=== PATIENT | female | born 1980 | race Caucasian/White ===

== ENCOUNTER 2019-05-11 07:18 | Emergency (ER) | payer BC ==
[2019-05-11] MEDS ORDERED: Sodium Chloride 0.9% 1000 ML 1,000 ML IV SCH (07:45)
[2019-05-11] MEDS ORDERED: Sodium Chloride 0.9% 1000 ML 1,000 ML ONE ×2 (07:51→09:10)
[2019-05-11] MEDS ORDERED: Zofran 4 MG/2 ML VIAL ONE (07:57)
[2019-05-11] MEDS ORDERED: SUBLIMAZE 100 MCG/2 ML ONE ×3 (07:57→11:49)
[2019-05-11 07:59] LABS: BASOPHIL % 0.2 % (0.0-0.4); Basophil (Absolute #) 0.02 (0-0.4); Eosinophil % 2.9 % (0.00-5.0); Eosinophil (Absolute #) 0.29 (0-0.5); Granulocytes % 73.1 % (36.0-66.0); Hematocrit 35.4 % (35-47); Lymphocyte (Absolute #) 1.76 (1.0-4.6); Lymphocytes % 17.9 % (24.0-44.0); Mean Cell Volume 87.8 fl (78-100); Mean Corpuscular Hgb Concent. 33.9 g/dl (32-36); Mean Platelet Volume 10.2 fl (6-9.5); Monocyte (Absolute #) 0.58 (0.0-1.3); Monocytes % 5.9 % (0.0-12.0); Platelet Count 278 K/mm3 (150-450); Red Blood Count 4.03 M/mm3 (4.1-5.4); Red Cell Distribution Width 14.4 % (11.5-14.0); White Blood Count 9.9 K/mm3 (4.0-10.5)
[2019-05-11] MEDS ORDERED: Zofran 4 MG/2 ML VIAL IV ONE (07:59)
[2019-05-11] MEDS ORDERED: SUBLIMAZE 100 MCG/2 ML IV ONE ×3 (08:00→11:48)
[2019-05-11 08:03] LABS: Mean Corpuscular Hemoglobin 29.7 pg (26-32)
--- NOTE | 2019-05-11 08:09 | ERPHSYRPT ---
- History of Present Illness Time Seen by Provider: 05/11/19 07:40 Source: patient Patient Subjective Stated Complaint: pt co cramping at 0330 this morning took tylenol, then about 0630 or 0700 started bleeding and passing clots, 4 para 3, she is 15 weeks Triage Nursing Assessment: pt alert, resp easy, skin w/d/p, moves all ext well, no edema, has abd pain, pt is passing clots, Physician History: PATIENT IS A -4, PARA-3, 15 WEEKS GESTATION COMPLAINS OF ACUTE ONSET OF PELVIC CRAMPING AT 3AM ONSET OF INCREASING PAIN ASSOCIATED WITH PASSAGE OF VAGINAL BLEEDING WITH CLOTS. HAS LIGHTHEADEDNESS UPON STANDING. PREVIOUS OB ULTRASOUND ON 04/05/2019 CONSISTENT WITH A SINGLE INTRAUTRINE GESTATIONAL SAC WITH PRESENCE OF A SINGLE POLE MEASURING 10 WEEKS 4 DAYS. Timing/Duration: today Activites at Onset: none Quality: cramping, sharpness Onset Location: pelvic pain Severity of Pain-Max: severe Severity of Pain-Current: severe Prior abdominal problems: none Sexual intercourse history: non-contributory Modifying Factors: Improves With: nothing Associated Symptoms: other (LIGHTHEADEDNESS) Allergies/Adverse Reactions: No Known Drug Allergies Allergy (Verified 05/11/19 07:34) Home Medications: Pnv No.95/Ferrous Fum/Folic AC [ Vitamin Tablet] 1 each PO DAILY [History] Hx Tetanus, Diphtheria Vaccination/Date Given: No Hx Influenza Vaccination/Date Given: Yes Hx Pneumococcal Vaccination/Date Given: No - Review of Systems Constitutional: No Fever, No Chills Eyes: No Symptoms Ears, Nose, & Throat: No Symptoms Respiratory: No Symptoms, No Cough, No Dyspnea Cardiac: No Symptoms, No Chest Pain, No Edema, No Syncope Abdominal/Gastrointestinal: No Symptoms, No Abdominal Pain, No Nausea, No Vomiting, No Diarrhea Genitourinary Symptoms: , Vaginal Bleeding, Other (PELVIC PAIN), No Dysuria Musculoskeletal: No Symptoms, No Back Pain, No Neck Pain Skin: No Symptoms, No Rash Neurological: Other (LIGHTHEADEDNESS), No Dizziness, No Focal Weakness, No Sensory Changes Psychological: No Symptoms Endocrine: No Symptoms All Other Systems: Reviewed and Negative - Past Medical History Pertinent Past Medical History: No Neurological History: No Pertinent History ENT History: No Pertinent History Cardiac History: No Pertinent History Respiratory History: No Pertinent History Endocrine Medical History: No Pertinent History Musculoskeletal History: Fractures GI Medical History: No Pertinent History History: No Pertinent History Psycho-Social History: No Pertinent History Female Reproductive Disorders: No Pertinent History Other Medical History: hx broken pelvis-2007. anemia, INDUCED - Past Surgical History Past Surgical History: Yes Neuro Surgical History: No Pertinent History Cardiac: No Pertinent History Respiratory: No Pertinent History Gastrointestinal: No Pertinent History Genitourinary: No Pertinent History Musculoskeletal: No Pertinent History Female Surgical History: Section Other Surgical History: sinus surgery - Social History Smoking Status: Never smoker Exposure to second hand smoke: No Drug Use: none Patient Lives Alone: No - Female History Hx Last Menstrual Period: dec Hx Now: Yes Expected Date of Delivery: 10/28/19 - Nursing Vital Signs Nursing Vital Signs: Initial Vital Signs O2 Sat by Pulse Oximetry 100 05/11/19 08:07 Pain Scale Pain Intensity 4 - Physical Exam General Appearance: mild distress, alert Eye Exam: PERRL/EOMI, eyes nml inspection Ears, Nose, Throat Exam: normal ENT inspection, TMs normal, pharynx normal, moist mucous membranes Neck Exam: normal inspection, non-tender, supple, full range of motion Respiratory Exam: normal breath sounds, lungs clear, No respiratory distress Cardiovascular Exam: regular rate/rhythm, normal heart sounds, normal peripheral pulses Gastrointestinal/Abdomen Exam: soft, normal bowel sounds, tenderness ( SUPRAPUBIC TENDERNESS), No mass Pelvic Exam: normal external exam, vaginal bleeding, uterine tenderness, other ( EXTERNAL CERVICAL OS DILATED 1CM) Back Exam: normal inspection, normal range of motion, No CVA tenderness, No vertebral tenderness Extremity Exam: normal inspection, normal range of motion, pelvis stable Neurologic Exam: alert, oriented x 3, cooperative, shooter's helper II-XII nml as tested, normal mood/affect, sensation nml, No motor deficits Skin Exam: normal color, warm, dry Lymphatic Exam: No adenopathy SpO2 Interpretation: normal SpO2: 99 - Radiology Ultrasound Exam OB Ultrasound: discussed w/radiologist (THE UTERUS CONTAINS NO PRODUCTS OF CONCEPTION, RESIDUAL FLUID REMAINS) Ordered Tests: Active Orders 24 hr Category Date Time Status Oxygen-ED Only Nasal Cannula 2 lpm Care 05/11/19 08:01 Active Pulse Oximetry (ED) STAT Care 05/11/19 08:01 Active OB >14 WKS 1st GESTATION [US] Stat Exams 07/06/19 07:42 Taken CBC W DIFF Stat Lab 05/11/19 07:35 Completed CBC W DIFF Stat Lab 05/11/19 14:00 Completed HCG QUALITATIVE,SERUM Stat Lab 05/11/19 07:35 Completed HCG, Quantitative (Inhouse) Stat Lab 05/11/19 07:35 Completed PROTIME WITH INR Stat Lab 05/11/19 07:35 Completed UA W/RFX UR CULTURE Stat Lab 05/11/19 15:45 Completed Medication Summary Generic Name Dose Route Start Last Admin Trade Name Freq PRN Reason Stop Dose Admin Sodium Chloride 1,000 mls @ 200 mls/hr 05/11/19 07:45 05/11/19 13:39 Sodium Chloride 0.9% 1000 Ml IV 06/10/19 07:44 Infused .Q5H NEL Infusion Discontinued Medications Generic Name Dose Route Start Last Admin Trade Name Freq PRN Reason Stop Dose Admin Fentanyl Citrate Confirm 05/11/19 07:57 Sublimaze 100 Mcg/2 Ml Administered 05/11/19 07:58 Dose 100 mcg .ROUTE .STK-MED ONE Fentanyl Citrate 100 mcg 05/11/19 08:00 05/11/19 08:07 Sublimaze 100 Mcg/2 Ml IV 05/11/19 08:01 100 mcg STAT ONE Administration Fentanyl Citrate 50 mcg 05/11/19 10:02 05/11/19 10:17 Sublimaze 100 Mcg/2 Ml IV 05/11/19 10:03 50 mcg STAT ONE Administration Fentanyl Citrate Confirm 05/11/19 10:12 Sublimaze 100 Mcg/2 Ml Administered 05/11/19 10:13 Dose 100 mcg .ROUTE .STK-MED ONE Fentanyl Citrate 50 mcg 05/11/19 11:48 05/11/19 11:49 Sublimaze 100 Mcg/2 Ml IV 05/11/19 11:49 50 mcg STAT ONE Administration Fentanyl Citrate Confirm 05/11/19 11:49 Sublimaze 100 Mcg/2 Ml Administered 05/11/19 11:50 Dose 100 mcg .ROUTE .STK-MED ONE Hydromorphone HCl 1 mg 05/11/19 12:59 05/11/19 13:10 Dilaudid 2 Mg Injection IV 05/11/19 13:00 1 mg STAT ONE Administration Hydromorphone HCl Confirm 05/11/19 13:09 Hydromorphone 1 Mg/Ml Ampule Administered 05/11/19 13:10 Dose 1 mg .ROUTE .STK-MED ONE Ceftriaxone Sodium/Dextrose 1 g in 50 mls @ 100 mls/hr 05/11/19 09:32 13:46 Rocephin 1 Gm-D5w 50 Ml Bag IV 05/11/19 10:01 Infused STAT ONE Infusion Ceftriaxone Sodium/Dextrose Confirm 05/11/19 12:31 Rocephin 1 Gm-D5w 50 Ml Bag Administered 05/11/19 12:32 Dose 1 g in 50 mls @ ud IV .STK-MED ONE Sodium Chloride 100 mls @ 100 mls/hr 05/11/19 12:43 05/11/19 13:42 Sodium Chloride 0.9% 100 Ml Ivpb IV 05/11/19 13:42 Infused .Q1H ONE Infusion Ondansetron HCl 4 mg 05/11/19 07:59 05/11/19 08:07 Zofran 4 Mg/2 Ml Vial IV 05/11/19 08:00 4 mg STAT ONE Administration Ondansetron HCl Confirm 05/11/19 07:57 Zofran 4 Mg/2 Ml Vial Administered 05/11/19 07:58 Dose 4 mg .ROUTE .STK-MED ONE Oxytocin 20 u 05/11/19 09:33 05/11/19 09:47 Pitocin 10 Units/Ml IV 05/11/19 09:34 20 u STAT STA Administration Lab/Rad Data: Laboratory Result Diagrams 05/11/19 14:00 Laboratory Results 05/11/19 05/11/19 05/11/19 Range/Units 15:45 14:00 07:35 WBC 12.4 H (4.0-10.5) K/mm3 RBC 3.31 L (4.1-5.4) M/mm3 Hgb 10.0 L (12.0-16.0) gm/dl Hct 29.6 L (35-47) % MCV 89.4 (78-100) fl MCH 30.2 (26-32) pg MCHC 33.8 (32-36) g/dl RDW 14.2 H (11.5-14.0) % Plt Count 226 (150-450) K/mm3 MPV 10.0 H (6-9.5) fl Gran % 84.6 H (36.0-66.0) % Eos # (Auto) 0.08 (0-0.5) Absolute Lymphs (auto) 1.24 (1.0-4.6) Absolute Monos (auto) 0.58 (0.0-1.3) Lymphocytes % 10.0 L (24.0-44.0) % Monocytes % 4.7 (0.0-12.0) % Eosinophils % 0.6 (0.00-5.0) % Basophils % 0.1 (0.0-0.4) % Absolute Granulocytes 10.53 H (1.4-6.9) Basophils # 0.01 (0-0.4) PT (9.95-12.35) SECONDS INR (0.8-3.0) Beta HCG, Quant 1925.5 mIU/ml Serum , Qual (Negative) Urine Color RED (YELLOW) Urine Appearance TURBID (CLEAR) Urine pH 8.0 (5-6) Ur Specific [place] 1.009 (1.005-1.025) Urine Protein 100 (Negative) Urine Ketones TRACE (NEGATIVE) Urine Blood MODERATE (0-5) James/ul Urine Nitrite NEGATIVE (NEGATIVE) Urine Bilirubin NEGATIVE (NEGATIVE) Urine Urobilinogen NEGATIVE (0-1) mg/dL Ur Leukocyte Esterase TRACE (NEGATIVE) Urine WBC (Auto) 0-2 (0-5) /HPF Urine RBC (Auto) >101 (0-2) /HPF U Epithel Cells (Auto) FEW (FEW) /HPF Urine Bacteria (Auto) NONE (NEGATIVE) /HPF Unidentified Crystals >100 (NEGATIVE) /HPF Urine Culture Reflexed NO (NO) Urine Glucose NEGATIVE (NEGATIVE) mg/dL ABO Group Rh Factor Antibody Screen (NEGATIVE) 05/11/19 05/11/19 05/11/19 Range/Units 07:35 07:35 07:35 WBC (4.0-10.5) K/mm3 RBC (4.1-5.4) M/mm3 Hgb (12.0-16.0) gm/dl Hct (35-47) % MCV (78-100) fl MCH (26-32) pg MCHC (32-36) g/dl RDW (11.5-14.0) % Plt Count (150-450) K/mm3 MPV (6-9.5) fl Gran % (36.0-66.0) % Eos # (Auto) (0-0.5) Absolute Lymphs (auto) (1.0-4.6) Absolute Monos (auto) (0.0-1.3) Lymphocytes % (24.0-44.0) % Monocytes % (0.0-12.0) % Eosinophils % (0.00-5.0) % Basophils % (0.0-0.4) % Absolute Granulocytes (1.4-6.9) Basophils # (0-0.4) PT 11.4 (9.95-12.35) SECONDS INR 1.01 (0.8-3.0) Beta HCG, Quant mIU/ml Serum , Qual POSITIVE (Negative) Urine Color (YELLOW) Urine Appearance (CLEAR) Urine pH (5-6) Ur Specific [place] (1.005-1.025) Urine Protein (Negative) Urine Ketones (NEGATIVE) Urine Blood (0-5) James/ul Urine Nitrite (NEGATIVE) Urine Bilirubin (NEGATIVE) Urine Urobilinogen (0-1) mg/dL Ur Leukocyte Esterase (NEGATIVE) Urine WBC (Auto) (0-5) /HPF Urine RBC (Auto) (0-2) /HPF U Epithel Cells (Auto) (FEW) /HPF Urine Bacteria (Auto) (NEGATIVE) /HPF Unidentified Crystals (NEGATIVE) /HPF Urine Culture Reflexed (NO) Urine Glucose (NEGATIVE) mg/dL ABO Group A Rh Factor POSITIVE Antibody Screen NEGATIVE (NEGATIVE) 05/11/19 Range/Units 07:35 WBC 9.9 (4.0-10.5) K/mm3 RBC 4.03 L (4.1-5.4) M/mm3 Hgb 12.0 (12.0-16.0) gm/dl Hct 35.4 (35-47) % MCV 87.8 (78-100) fl MCH 29.7 (26-32) pg MCHC 33.9 (32-36) g/dl RDW 14.4 H (11.5-14.0) % Plt Count 278 (150-450) K/mm3 MPV 10.2 H (6-9.5) fl Gran % 73.1 H (36.0-66.0) % Eos # (Auto) 0.29 (0-0.5) Absolute Lymphs (auto) 1.76 (1.0-4.6) Absolute Monos (auto) 0.58 (0.0-1.3) Lymphocytes % 17.9 L (24.0-44.0) % Monocytes % 5.9 (0.0-12.0) % Eosinophils % 2.9 (0.00-5.0) % Basophils % 0.2 (0.0-0.4) % Absolute Granulocytes 7.20 H (1.4-6.9) Basophils # 0.02 (0-0.4) PT (9.95-12.35) SECONDS INR (0.8-3.0) Beta HCG, Quant mIU/ml Serum , Qual (Negative) Urine Color (YELLOW) Urine Appearance (CLEAR) Urine pH (5-6) Ur Specific [place] (1.005-1.025) Urine Protein (Negative) Urine Ketones (NEGATIVE) Urine Blood (0-5) James/ul Urine Nitrite (NEGATIVE) Urine Bilirubin (NEGATIVE) Urine Urobilinogen (0-1) mg/dL Ur Leukocyte Esterase (NEGATIVE) Urine WBC (Auto) (0-5) /HPF Urine RBC (Auto) (0-2) /HPF U Epithel Cells (Auto) (FEW) /HPF Urine Bacteria (Auto) (NEGATIVE) /HPF Unidentified Crystals (NEGATIVE) /HPF Urine Culture Reflexed (NO) Urine Glucose (NEGATIVE) mg/dL ABO Group Rh Factor Antibody Screen (NEGATIVE) - Progress Progress Note: 05/11/19 08:13 IV NORMAL SALINE 500ML/HR, ZOFRAN 4MG, FENTANYL 100MCG IV 05/11/19 09:52, LABS REVIEWED RH-POSITIVE,HGB--12, HCT-35, PITOCIN 20UNITS ADDED TO 1 LITER NS INFUSE 500ML OVER 30 MINUTES FOLLOWED BY 250ML/HR Discussed with : Other (DISCUSSED WITH DR MARTIN AT 0930 [employer]ERCIAL [employer]INTER MANAGED CARE COORDINATOR [facility] RECOMMENDS PITOCIN 20UNITS IN LITER NS OVER 90 MINUTES AND METHERGINE 0.2MG IM IF NEEDED.) Counseled pt/family regarding: lab results, diagnosis, need for follow-up - Departure Departure Disposition: Home Clinical Impression: COMPLETE Condition: Stable Critical Care Time: No Referrals: ELDON HUSAIN [Primary Care Provider] - Additional Instructions: FOLLOW UP YOUR PRIMARY CARE PROVIDER IN 2 DAYS. REDUCE YOUR ACTIVITY LEVEL. DRINK PLENTY OF FLUIDS. NORCO 5/325 EVERY 6 HOURS FOR PAIN. RETURN TO EMERGENCY ROOM FOR WEAKNESS, DIZZINESS AND INCREASING PAIN DISCOMFORT.
[2019-05-11 08:13] LABS: INR 1.01 (0.8-3.0); PROTIME 11.4 SECONDS (9.95-12.35)
[2019-05-11 08:40] LABS: ABO TYPING A; Antibody Screen NEGATIVE (NEGATIVE); RH TYPING POSITIVE
[2019-05-11] MEDS ORDERED: ROCEPHIN 1 Gm-D5w 50 ml Bag** 1 G/50 ML IVPB IV ONE ×2 (09:32→12:31)
[2019-05-11] MEDS ORDERED: Pitocin 10 UNITS/ML IV STA (09:33)
[2019-05-11] MEDS ORDERED: Sodium Chloride 0.9% 100 ML IVPB 100 ML IV ONE (12:43)
[2019-05-11] MEDS ORDERED: DILAUDID 2 MG INJECTION IV ONE (12:59)
[2019-05-11] MEDS ORDERED: Hydromorphone 1 mg/ml Ampule ONE (13:09)
[2019-05-11 14:22] LABS: BASOPHIL % 0.1 % (0.0-0.4); Basophil (Absolute #) 0.01 (0-0.4); Eosinophil % 0.6 % (0.00-5.0); Eosinophil (Absolute #) 0.08 (0-0.5); Granulocyte Absolute (ANC) 10.53 (1.4-6.9); Granulocytes % 84.6 % (36.0-66.0); Hematocrit 29.6 % (35-47); Lymphocyte (Absolute #) 1.24 (1.0-4.6); Mean Cell Volume 89.4 fl (78-100); Mean Corpuscular Hemoglobin 30.2 pg (26-32); Mean Corpuscular Hgb Concent. 33.8 g/dl (32-36); Monocyte (Absolute #) 0.58 (0.0-1.3); Monocytes % 4.7 % (0.0-12.0); Platelet Count 226 K/mm3 (150-450); Red Blood Count 3.31 M/mm3 (4.1-5.4); Red Cell Distribution Width 14.2 % (11.5-14.0); White Blood Count 12.4 K/mm3 (4.0-10.5)
[2019-05-11 14:24] VITALS: PULSE 72
[2019-05-11 15:52] LABS: Appearance TURBID (CLEAR); Bilirubin NEGATIVE (NEGATIVE); Blood MODERATE Ery/ul (0-5); Glucose NEGATIVE (NEGATIVE); Ketones TRACE (NEGATIVE); Leukocyte Esterase TRACE (NEGATIVE); Nitrite NEGATIVE (NEGATIVE); Protein,Urine Dip 100 (Negative); Specific Gravity 1.009 (1.005-1.025); Urobilinogen NEGATIVE mg/dL (0-1); WBC 0-2 /HPF (0-5)
[2019-05-11 15:53] LABS: Crystals Unidentified >100 /HPF (NEGATIVE); Epithelial Cells FEW /HPF (FEW)
[2019-05-11 15:54] LABS: RBC >101 /HPF (0-2)
[2019-05-11 16:05] VITALS: O2SAT 99
[2019-05-11 16:27] VITALS: BP 98/54
--- NOTE | 2019-05-11 20:41 | XRAY ---
Indication: Cramping and bleeding. 15 weeks . Two-dimensional oblique ultrasound performed. Comparison: April 05, 2019. Uterus is retroverted. There is now no endometrial cavity gestational sac, pole, or heart tones favoring spontaneous . Tiny endometrial cavity fluid. Left and right ovaries unremarkable. No suspicious adnexal mass or free fluid. Impression: Interval spontaneous with tiny residual endometrial cavity fluid. Comment: Preliminary report was given.
== END 2019-05-11 16:20 | disposition home or self-care (01) ==
LOC: ED 07:18
DX: O03.9 Complete or unspecified spontaneous abortion without complication (principal)
CPT/HCPCS: 36415; 76805; 81001; 81025; 84702; 85025; 85610; 86850; 86900; 86901; 94760; 96360; 96361; 96365; 96367; 96374; 96375; 96376; 99285; J0696; J1170; J2405; J2590; J3010

== ENCOUNTER 2020-09-03 06:04 | Inpatient (IN) | payer BC ==
[2020-09-03] MEDS: Lactated Ringers 1,000 ML IV SCH ×2 (13:30→15:00)
[2020-09-03 13:39] LABS: Hematocrit 31.3 % (35-47); Hemoglobin 9.7 gm/dl (12.0-16.0); Mean Cell Volume 91.3 fl (78-100); Mean Corpuscular Hemoglobin 28.3 pg (26-32); Mean Platelet Volume 11.5 fl (7.5-11.0); Platelet Count 193 K/mm3 (150-450); Red Blood Count 3.43 M/mm3 (4.1-5.4); Red Cell Distribution Width 18.8 % (11.5-14.0); White Blood Count 13.3 K/mm3 (4.0-10.5)
[2020-09-03 13:45] LABS: INR 1.06 (0.8-3.0)
[2020-09-03 13:48] LABS: PTT 25.2 SECONDS (25.3-37.0)
[2020-09-03 14:21] LABS: ABO TYPING A; Antibody Screen NEGATIVE (NEGATIVE); RH TYPING POSITIVE
[2020-09-03] MEDS ORDERED: SOD CITRATE-CITRIC ACID SOLN PO ONE (15:00)
[2020-09-03] MEDS ORDERED: Pepcid 20 MG VIAL IV SCH (15:00)
[2020-09-03] MEDS ORDERED: Reglan 10 MG/2 ML IV SCH (15:00)
[2020-09-03] MEDS ORDERED: CEFAZOLIN 2 GM-D5W BAG** 2 GM/50 ML ML IV SCH (15:00)
[2020-09-03] MEDS ORDERED: Naropin 0.5% 30 ML VIAL IJ ONE (15:57)
[2020-09-03] MEDS ORDERED: Astramorph-Pf 5 MG/10 ML IV ONE (15:57)
[2020-09-03] MEDS ORDERED: PHENYLEPHRINE HCL IJ ONE (15:57)
[2020-09-03] MEDS ORDERED: Zofran 4 MG/2 ML VIAL IV ONE (15:57)
[2020-09-03] MEDS ORDERED: EPINEPHRINE 1MG/ML AMP IV ONE (15:57)
[2020-09-03] MEDS ORDERED: TORAdol 30 mg Injection IV ONE (15:57)
[2020-09-03] MEDS ORDERED: Decadron 4 MG INJ IV ONE (15:57)
[2020-09-03] MEDS ORDERED: Pitocin 10 UNITS/ML IV ONE (15:57)
[2020-09-03] MEDS ORDERED: Lactated Ringers 1,000 ML IV ONE ×2 (16:48→17:28)
[2020-09-03] MEDS ORDERED: BENADRYL 50 MG/ML IV PRN (17:58)
[2020-09-03] MEDS ORDERED: DEMEROL 50 MG IV PRN (17:58)
[2020-09-03] MEDS ORDERED: MORPHINE SULFATE 2 MG INJ IV PRN (17:58)
[2020-09-03] MEDS ORDERED: HOLD NARCOTIC ANALGESICS AND SEDATIVES X24 HR MC PRN (17:58)
[2020-09-03] MEDS ORDERED: Zofran 4 MG/2 ML VIAL IV PRN (17:58)
[2020-09-03] MEDS ORDERED: CLARITIN 10 MG PO PRN (17:58)
[2020-09-03] MEDS ORDERED: Narcan 0.4 MG/ML IV PRN (17:58)
[2020-09-03] MEDS ORDERED: Nubain 10 MG/ML IV PRN (17:58)
[2020-09-03 18:14] LABS: Appearance CLEAR (CLEAR); Bacteria MODERATE /HPF (NEGATIVE); Bilirubin NEGATIVE (NEGATIVE); Blood NEGATIVE Ery/ul (0-5); Epithelial Cells RARE /HPF (FEW); Glucose NEGATIVE (NEGATIVE); Hyaline Casts 0-2 /LPF (0-2); Ketones MODERATE (NEGATIVE); Leukocyte Esterase NEGATIVE (NEGATIVE); Mucus MANY /HPF (NEGATIVE); Nitrite NEGATIVE (NEGATIVE); Protein,Urine Dip 30 (Negative); Urobilinogen 2 mg/dL (0-1); WBC 0-2 /HPF (0-5)
[2020-09-03] MEDS: Dextrose 5%-Lr IV Solution 1000 ML 1,000 ML IV SCH (18:23)
[2020-09-03 18:25] LABS: Amphetamine,Urine NEGATIVE (NEGATIVE); Barbiturate,Urine NEGATIVE (NEGATIVE); Benzodiazepine,Urine NEGATIVE (NEGATIVE); Cocaine,Urine NEGATIVE (NEGATIVE); Methadone,Urine NEGATIVE (NEGATIVE); Opiate,Urine NEGATIVE (NEGATIVE); PCP,Urine NEGATIVE (NEGATIVE); THC,Urine NEGATIVE (NEGATIVE)
[2020-09-03] MEDS ORDERED: NORCO 5/325 MG PO PRN (21:38)
[2020-09-03] MEDS ORDERED: Mylicon 80MG PO PRN (21:38)
[2020-09-03] MEDS ORDERED: LANSINOH 40 GM TOP PRN (21:38)
[2020-09-03] MEDS: MOTRIN 400 MG PO PRN (21:46)
[2020-09-03] MEDS: Colace 100 MG PO SCH (21:48)
[2020-09-03] MEDS ORDERED: PERCOCET TABLET 5/325MG PO PRN (22:42)
[2020-09-04] MEDS: TYLENOL EXTRA STRENGTH 500 MG PO PRN ×4 (00:49→19:44)
[2020-09-04] MEDS: Dextrose 5%-Lr IV Solution 1000 ML 1,000 ML IV SCH (01:39)
[2020-09-04] MEDS: MOTRIN 400 MG PO PRN ×4 (04:19→23:56)
[2020-09-04 05:46] LABS: Hematocrit 28.3 % (35-47); Hemoglobin 8.6 gm/dl (12.0-16.0); Mean Cell Volume 92.2 fl (78-100); Mean Corpuscular Hgb Concent. 30.4 g/dl (32-36); Platelet Count 182 K/mm3 (150-450); Red Blood Count 3.07 M/mm3 (4.1-5.4); Red Cell Distribution Width 18.8 % (11.5-14.0); White Blood Count 15.8 K/mm3 (4.0-10.5)
[2020-09-04 06:57] LABS: Lymphocytes 4 % (24-44); Monocyte 4 % (0.0-12.0); Neutrophils 92 % (36.0-66.0); Total Cells Counted 100
[2020-09-04 06:58] LABS: ANISOCYTOSIS 1+; Poikilocytosis 1+
[2020-09-04] MEDS: Colace 100 MG PO SCH ×2 (10:49→21:29)
[2020-09-04] MEDS: FERREX 150 PO SCH (10:50)
[2020-09-05] MEDS: TYLENOL EXTRA STRENGTH 500 MG PO PRN ×3 (01:01→13:23)
[2020-09-05 01:47] VITALS: O2SAT 94
[2020-09-05] MEDS: MOTRIN 400 MG PO PRN ×2 (06:01→12:00)
[2020-09-05] MEDS: FERREX 150 PO SCH (09:35)
[2020-09-05] MEDS: Colace 100 MG PO SCH (09:35)
--- NOTE | 2020-09-05 12:19 | PCM.DS ---
Discharge Summary Date of Admission: 09/03/20 11:15 Admitting Physician: PASCUAL BHANDARI Consults: Consults on Case 09/03/20 17:58 Notify Anesthesia Provider PRN Primary Care Provider: ELDON GOMEZ Allergies Allergies No Known Drug Allergies Allergy (Verified 05/11/19 07:34) Hospital Summary - Hospital Course Hospital Course: Pt is 40 yo who came in at 37w for repeat c/s due to oligohydramnios (VANESSA 3.4). She had had a only complicated by anemia. Hgb was 9.1 in the 3rd trimester and improved to 9.6 with several iron infusions. Her Hgb was 8.6 after the / BTL. No complications. Baby has done well; . sending pt home today with baby on norco and ibuprofen, with po iron. Will see baby and mom in f/u on Monday (in 6d). - Vitals & Intake/Output Vital Signs: Vital Signs Temperature 97.8 F 09/05/20 09:30 Pulse Rate 75 09/05/20 09:30 Respiratory Rate 18 09/05/20 09:30 Blood Pressure 101/54 09/05/20 09:30 O2 Sat by Pulse Oximetry 94 L 09/05/20 01:46 Intake & Output: Intake & Output 09/03/20 09/04/20 09/05/20 09/06/20 11:59 11:59 11:59 10:59 Intake Total 3545 900 Output Total 3300 Balance 245 900 Weight 88.451 kg - Lab Result Diagrams: 09/04/20 04:25 Micro Results-Entire Visit: Microbiology 09/03/20 16:06 Urine Culture - Final Catherized NO GROWTH - Procedures and Test Procedures and Tests throughout Hospitalization: Therapy Orders & Screens 09/03/20 16:50 Standby ROUTINE Comment: Diagnosis: [place] Section Discharge Exam General Appearance: no apparent distress, alert Neurologic Exam: oriented x 3, cooperative Eye Exam: eyes nml inspection Ears, Nose, Throat Exam: moist mucous membranes Neck Exam: normal inspection Respiratory Exam: normal breath sounds, lungs clear, No crackles/rales, No rhonchi, No wheezing Cardiovascular Exam: regular rate/rhythm, normal heart sounds, No murmur Gastrointestinal/Abdomen Exam: soft, normal bowel sounds, other (wound c/d/i. fundus firm inferior to umbilicus) Extremity Exam: No pedal edema, No swelling Skin Exam: normal color, warm, dry, No rash Final Diagnosis/Problem List - Final Discharge Diagnosis/Problem (1) Status post repeat low transverse section Current Visit: No Status: Acute Assessment & Plan: POD #2, doing great. Home with baby. INSPECT appropriate today 09/05/20. Code(s): Z98.89 - OTHER SPECIFIED POSTPROCEDURAL STATES * DO NOT USE * (2) Anemia Current Visit: No Status: Acute Code(s): D64.9 - ANEMIA, UNSPECIFIED - Discharge Disposition: Home, Self-Care Condition: Good Prescriptions: New Ferrous Sulfate 325 mg PO DAILY #30 tablet Ibuprofen 600 mg PO QID PRN #35 tablet PRN Reason: Pain Hydrocodone/APAP 5-325 Tab^^^ [[place] 5-325 Tablet^^^] 1 tab PO Q6HPRN PRN #15 tablet MDD 6 PRN Reason: Severe Pain Continue Pnv No.95/Ferrous Fum/Folic AC [ Vitamin Tablet] 1 each PO DAILY Instructions: ( Delivery) (DC), Breast Care for the Woman, Common Problems Follow up with: ELDON GOMEZ [Primary Care Provider] - 1 Week Forms: OB Discharge Instructions
[2020-09-05 13:32] VITALS: BP 108/63; PULSE 66
== END 2020-09-05 14:00 | disposition home or self-care (01) | DRG 784 ==
LOC: RAD 06:04 → OB 11:15
PROVIDERS: ADMIT Family Medicine; ATTEND Family Medicine
PROC: 10D00Z1 Extraction of Products of Conception, Low, Open Approach (ICD-10-PCS; principal; 2020-09-03)
PROC: 0UT70ZZ Resection of Bilateral Fallopian Tubes, Open Approach (ICD-10-PCS; 2020-09-03)
DX: O34.211 Maternal care for low transverse scar from previous cesarean delivery (principal); O41.03X0 Oligohydramnios, third trimester, not applicable or unspecified; O99.02 Anemia complicating childbirth; Z3A.37 37 weeks gestation of pregnancy; Z37.0 Single live birth; Z30.2 Encounter for sterilization
CPT/HCPCS: 36415; 64488; 76937; 80307; 81001; 85025; 85027; 85610; 85730; 86850; 86900; 86901; 87086; 94799; J0171; J1100; J1885; J2274; J2370; J2405; J2590; J2795; L0625; A9270-GY

== ENCOUNTER 2020-09-03 06:07 | Observation (INO) | payer BC ==
[2020-09-03 06:33] VITALS: BP 118/64; PULSE 97; O2SAT 98
--- NOTE | 2020-09-03 09:52 | XRAY ---
Indication: Size greater than dates. 2-dimensional OB ultrasound performed. Comparison: July 29, 2020. Again there is a single viable intrauterine in cephalic presentation. heart rate 152 BPM. Anterior fundal placenta without abruption/previa. BPD measures 9.01 cm corresponding to 36 weeks 3 days. HC measures 32.39 cm corresponding to 36 weeks 5 days. AC measures 34.71 cm corresponding to 38 weeks 4 days. FL measures 7.26 cm corresponding to 37 weeks 1 day. Estimated weight 7 lbs. 5 oz., +/-1 lb. 2 oz. Approximately 77 percentile. VANESSA is 3.4 cm. Impression: Again single viable intrauterine with mean gestational age 37 weeks 2 days. Normal progression of . No new/acute findings.
--- NOTE | 2020-09-03 09:54 | XRAY ---
Indication: Size greater than dates. Ultrasound biophysical profile exam performed. Comparison: None Single viable intrauterine with heart rate 152 BPM. Four-quadrant VANESSA 3.4 cm. 2 points given for breathing, movements, tone, and qualitative amniotic fluid volume. Impression: Total biophysical profile score is 8 out of 8.
== END 2020-09-03 09:05 | disposition home or self-care (01) ==
LOC: OB 06:07
PROVIDERS: ADMIT Family Medicine; ATTEND Family Medicine
DX: Z34.83 Encounter for supervision of other normal pregnancy, third trimester (principal); Z3A.37 37 weeks gestation of pregnancy
CPT/HCPCS: 59025; 76815; 76819; G0378